=== PATIENT | male | born 1965 | race Caucasian/White ===

== ENCOUNTER 2017-01-31 09:35 | Emergency (ER) | payer OTHER ==
[~2017-01-31] VITALS: Ht 193 cm; Wt 84.0 kg
[2017-01-31 09:41] VITALS: BP 141/71; PULSE 86; RESP 16; TEMP 97.9; O2SAT 97
[2017-01-31] MEDS ORDERED: SODIUM CHLOR 0.9% 1000 ML INJ 1,000 ML IV ONE (10:00)
[2017-01-31 10:07] LABS: AUTOMATED NEUTROPHIL # 11.6 TH/MM3 (1.8-7.7); BASOPHIL % 0.3 % (0.0-2.0); EOSINOPHIL % 0.2 % (0.0-4.0); HEMATOCRIT 38.6 % (39.0-51.0); HEMO FLAGS DIFF FINAL; LYMPH % 8.9 % (9.0-44.0); LYMPHOCYTE # 1.2 TH/MM3 (1.0-4.8); MEAN CELL VOLUME 93.7 FL (80.0-100.0); MEAN CORPUSCULAR HEMOGLOBIN 31.7 PG (27.0-34.0); MEAN CORPUSCULAR HGB CONC 33.9 % (32.0-36.0); MONO % 3.6 % (0.0-8.0); PLATELET COUNT 274 TH/MM3 (150-450); RED BLOOD COUNT 4.12 MIL/MM3 (4.50-5.90); RED CELL DISTRIBUTION WIDTH 13.6 % (11.6-17.2); WHITE BLOOD COUNT 13.4 TH/MM3 (4.0-11.0)
[2017-01-31 10:30] LABS: ALKALINE PHOSPHATASE 65 U/L (45-117); ALT (GPT) 30 U/L (12-78); ANION GAP 14 MEQ/L (5-15); AST (GOT) 45 U/L (15-37); BICARBONATE 17.6 MEQ/L (21.0-32.0); BLOOD UREA NITROGEN 13 MG/DL (7-18); CHLORIDE 107 MEQ/L (98-107); CREATINE KINASE 659 U/L (39-308); GLOMERULAR FILTRATION RATE 76 ML/MIN (>89); POTASSIUM 4.2 MEQ/L (3.5-5.1); SODIUM (NA) 139 MEQ/L (136-145); TOTAL BILIRUBIN ADULT 0.4 MG/DL (0.2-1.0)
[2017-01-31] MEDS ORDERED: FAMOTIDINE 20 MG TAB PO ONE (10:30)
[2017-01-31 10:55] LABS: CKMB 9.2 NG/ML (0.5-3.6)
--- NOTE | 2017-01-31 11:16 | PD ---
HPI Chief Complaint: Abnormal Results Time Seen by Provider: 09:54 Travel History International Travel<30 days: No Contact w/Intl Traveler<30days: No Traveled to known affect area: No History of Present Illness HPI 51-year-old man, walking down illness be when after walking for some time he began to feel overheated, nauseous, lightheaded. He did not eat since yesterday. Denies any chest pain or shortness of breath. Feels improved after IV fluids and eating. History Past Medical History Medical History: Denies Significant Hx Social History Alcohol Use: Yes Tobacco Use: Yes Allergies-Medications (Allergen,Severity, Reaction): Coded Allergies: No Known Allergies (Unverified , 01/31/17) Review of Systems Except as stated in HPI: all other systems reviewed are Neg Physical Exam Narrative GENERAL: Well-appearing 51-year-old man, no acute distress. SKIN: Focused skin assessment warm/dry. HEAD: Atraumatic. Normocephalic. EYES: Pupils equal and round. No scleral icterus. No injection or drainage. ENT: No nasal bleeding or discharge. Mucous membranes pink and moist. NECK: Trachea midline. No JVD. CARDIOVASCULAR: Regular rate and rhythm. No murmur appreciated. RESPIRATORY: No accessory muscle use. Clear to auscultation. Breath sounds equal bilaterally. GASTROINTESTINAL: Abdomen soft, non-tender, nondistended. Hepatic and splenic margins not palpable. MUSCULOSKELETAL: No obvious deformities. Data Data Last Documented VS Vital Signs Date Time Temp Pulse Resp B/P Pulse Ox O2 Delivery O2 Flow Rate FiO2 01/31/17 09:45 97 Room Air 01/31/17 09:41 97.9 86 16 141/71 Orders Complete Blood Count With Diff (01/31/17 09:49) Comprehensive Metabolic Panel (01/31/17 09:49) Creatine Kinase (Cpk) (01/31/17 09:49) Iv Access Insert/Monitor (01/31/17 09:49) Sodium Chlor 0.9% 1000 Ml Inj (Ns 1000 M (01/31/17 10:00) Diet Regular Basic (01/31/17 Breakfast) Famotidine (Pepcid) (01/31/17 10:30) CKMB (01/31/17 09:50) CKMB% (01/31/17 09:50) Labs Laboratory Tests Test 01/31/17 09:50 White Blood Count 13.4 TH/MM3 Red Blood Count 4.12 MIL/MM3 Hemoglobin 13.1 GM/DL Hematocrit 38.6 % Mean Corpuscular Volume 93.7 FL Mean Corpuscular Hemoglobin 31.7 PG Mean Corpuscular Hemoglobin 33.9 % Concent Red Cell Distribution Width 13.6 % Platelet Count 274 TH/MM3 Mean Platelet Volume 7.8 FL Neutrophils (%) (Auto) 87.0 % Lymphocytes (%) (Auto) 8.9 % Monocytes (%) (Auto) 3.6 % Eosinophils (%) (Auto) 0.2 % Basophils (%) (Auto) 0.3 % Neutrophils # (Auto) 11.6 TH/MM3 Lymphocytes # (Auto) 1.2 TH/MM3 Monocytes # (Auto) 0.5 TH/MM3 Eosinophils # (Auto) 0.0 TH/MM3 Basophils # (Auto) 0.0 TH/MM3 CBC Comment DIFF FINAL Differential Comment Sodium Level 139 MEQ/L Potassium Level 4.2 MEQ/L Chloride Level 107 MEQ/L Carbon Dioxide Level 17.6 MEQ/L Anion Gap 14 MEQ/L Blood Urea Nitrogen 13 MG/DL Creatinine 1.03 MG/DL Estimat Glomerular Filtration 76 ML/MIN Rate Random Glucose 137 MG/DL Calcium Level 8.3 MG/DL Total Bilirubin 0.4 MG/DL Aspartate Amino Transf 45 U/L (AST/SGOT) Alanine Aminotransferase 30 U/L (ALT/SGPT) Alkaline Phosphatase 65 U/L Total Creatine Kinase 659 U/L Creatine Kinase MB 9.2 NG/ML Creatine Kinase MB % 1.4 % Total Protein 7.1 GM/DL Albumin 4.0 GM/DL [facility] Medical Decision Making Medical Screen Exam Complete: Yes Emergency Medical Condition: Yes Interpretation(s) LABS: CBC remarkable for mild leukocytosis. CMP remarkable for a bicarbonate of 17.6, otherwise normal Total CK 659 Differential Diagnosis Dehydration, weakness, infection, rhabdo, other Narrative Course Medical decision making This a well 51-year-old man got lightheaded and dizzy when he is walking. CT guided exhausted. He was probably dehydrated, and since yesterday. His blood sugar is also in the 40s initially with EMS. This is resolved now. Recommend outpatient follow-up. Diagnosis Primary Impression: Weakness Additional Instructions: Follow-up with your primary doctor for not completely well the next 2-4 days. Drink plenty of fluids to stay well-hydrated, especially in the heat. Med/Other Pt SpecificInfo: No Change to Meds Disposition: 01 DISCHARGE HOME Condition: Stable Jimbo Reyes MD January 31, 2017 11:16
[2017-01-31 11:46] VITALS: BP 141/71
== END 2017-01-31 11:48 | disposition home or self-care (01) ==
LOC: NEPC 09:35
DX: R53.1 Weakness (principal); R11.0 Nausea; Z72.0 Tobacco use
CPT/HCPCS: 80053; 82550; 82552; 85025; 99284; J7030